=== PATIENT | male | born 1955 | race Two or more races ===

== ENCOUNTER 2024-05-29 20:04 | Emergency (ER) | payer SELFPAY ==
[~2024-05-29] VITALS: Ht 172.7 cm; Wt 87.5 kg
[2024-05-29] MEDS: HYDROcodone-ACET 10/325MG TAB PO ONE (22:34)
[2024-05-29] MEDS: KETOROLAC TROMETH 60MG/2ML VIAL IM ONE (22:35)
[2024-05-29] MEDS ORDERED: IBUP-1455 PO (23:15)
[2024-05-29] MEDS ORDERED: ACE3T PO (23:15)
[2024-05-29 23:30] VITALS: BP 165/90; PULSE 85; RESP 18; TEMP 98; O2SAT 96
== END 2024-05-29 23:31 | disposition home or self-care (01) ==
LOC: ER 20:04
DX: M54.16 Radiculopathy, lumbar region (principal); M54.59 Other low back pain
CPT/HCPCS: 72100; 96372; 99283; J1885

== ENCOUNTER 2024-06-15 19:49 | Emergency (ER) | payer MEDICAID ==
[~2024-06-15] VITALS: Ht 172.7 cm; Wt 84.0 kg
[~2024-06-15 19:49] MED LIST: ACE3T PO; IBUP-1455 PO
[2024-06-15] MEDS ORDERED: HYDR-4798 PO (21:47)
[2024-06-15] MEDS ORDERED: IBUP200T76 PO (21:47)
[2024-06-16 01:26] VITALS: BP 155/83; PULSE 70; RESP 18; TEMP 97.9; O2SAT 98
[2024-06-16] MEDS: HYDROcodone-ACET 10/325MG TAB PO ONE (01:36)
[2024-06-16] MEDS: IBUPROFEN 800 MG TAB PO ONE (01:37)
== END 2024-06-16 01:40 | disposition home or self-care (01) ==
LOC: ER 19:49
DX: M54.16 Radiculopathy, lumbar region (principal); M53.87 Other specified dorsopathies, lumbosacral region; Z79.1 Long term (current) use of non-steroidal anti-inflammatories (NSAID)
CPT/HCPCS: 72131